=== PATIENT | female | born 1945 | race Caucasian/White ===

== ENCOUNTER 2017-09-28 12:29 | Day surgery (SDC) | payer MEDICARE ==
[~2017-09-28] VITALS: Ht 174 cm; Wt 84.2 kg
[~2017-09-28 12:29] MED LIST: AMIT25TA PO; CHOL10003 PO; LACT1CAP11 PO; MAGN400T7 PO; METO25TA35 PO; OMEP40CA6 PO; POTA10TA5 PO; SIMV20TA3 PO; TRIA1TAB3 PO; ZOLP-413 PO
[2017-09-28 13:42] VITALS: BP 134/90
[2017-09-28] MEDS ORDERED: LACTATED RINGERS 1,000 ML IV SCH (13:46)
[2017-09-28] MEDS ORDERED: ROCURONIUM 10 MG/ML,10ML ONE (15:15)
[2017-09-28] MEDS ORDERED: LIDOCAINE-MPF 2% ,5ML ONE (15:15)
[2017-09-28] MEDS ORDERED: ONDANSETRON 2MG/ML, 2ML ONE (15:15)
[2017-09-28] MEDS ORDERED: DEXAMETHASONE 4 MG/ML, 1ML ONE ×2 (15:15)
[2017-09-28] MEDS ORDERED: PROPOFOL 10 MG/ML, 20ML ONE (15:15)
[2017-09-28] MEDS ORDERED: FENTANYL PF 100 MCG/2ML ONE (15:18)
[2017-09-28] MEDS ORDERED: FENTANYL PF 100 MCG/2ML IV PRN (16:00)
[2017-09-28] MEDS ORDERED: OXYcodone 5 MG/5 ML ORAL.SOL UDC PO PRN (16:00)
[2017-09-28] MEDS ORDERED: HYDROcodone/APAP 7.5-325MG/15ML UDC PO PRN (16:00)
[2017-09-28] MEDS ORDERED: MEPERIDINE/PF 25MG/0.5ML IVPush PRN (16:00)
[2017-09-28] MEDS ORDERED: ONDANSETRON 2MG/ML, 2ML IVPush PRN (16:00)
[2017-09-28] MEDS ORDERED: HYDROmorphone 1 MG/ML, 1ML IV PRN (16:00)
[2017-09-28] MEDS ORDERED: morphine SULFATE 10 MG/ML, 1ML IV PRN (16:00)
== END 2017-09-28 17:10 ==
LOC: OUT 12:29
PROVIDERS: ATTEND Internal Medicine Geriatric Medicine
DX: K80.20 Calculus of gallbladder without cholecystitis without obstruction (principal); K31.7 Polyp of stomach and duodenum; E78.5 Hyperlipidemia, unspecified; I10 Essential (primary) hypertension; Z96.612 Presence of left artificial shoulder joint; Z98.890 Other specified postprocedural states; Z88.1 Allergy status to other antibiotic agents; Z88.0 Allergy status to penicillin; Z88.8 Allergy status to other drugs, medicaments and biological substances
CPT/HCPCS: 43251; 43259; 88305; 93005; J1100; J2405; J2704; J3010; J3490; J7120